=== PATIENT | female | born 2000 | race Caucasian/White ===

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

== ENCOUNTER 2022-03-24 17:42 | Emergency (ER) | payer BC ==
[2022-03-24] MEDS ORDERED: Sodium Chloride 0.9% 10 ML Syringe FLUSH PRN (19:23)
[2022-03-24] MEDS ORDERED: Ondansetron 4 MG/2 ML SDV IVPUSH ONE (19:23)
[2022-03-24] MEDS ORDERED: Alum Hydro/Mag Hydro/Simeth XS 15 ML, Lidocaine 2% 5 ML PO ONE ×2 (19:23)
[2022-03-24] MEDS ORDERED: Sodium Chloride 0.9% 2.5 ML Syringe FLUSH PRN (19:23)
[2022-03-24] MEDS ORDERED: Sodium Chloride 0.9% 1,000 ML IV ONE (19:23)
[2022-03-24 20:35] LABS: CARBON DIOXIDE,CO2 26.6 mmol/L (21.0-32.0); POTASSIUM,K 3.8 mmol/L (3.5-5.1)
[2022-03-24 20:38] LABS: CORONAVIRUS COVID-19 NAA NEGATIVE (NEGATIVE); INFLUENZA A NAA NEGATIVE (NEGATIVE); INFLUENZA B NAA NEGATIVE (NEGATIVE)
[2022-03-24 21:31] VITALS: BP 131/92; PULSE 77
== END 2022-03-24 21:18 | disposition home or self-care (01) ==
LOC: MW.ED 17:42
DX: K29.00 Acute gastritis without bleeding (principal); Z79.899 Other long term (current) drug therapy; Z20.822 Contact with and (suspected) exposure to COVID-19
CPT/HCPCS: 0240U; 36415; 80053; 83735; 85025; 96361; 96374; 99284; A9270; J2405; J3490; J7030

== ENCOUNTER 2022-10-17 11:40 | Day surgery (SDC) | payer BC ==
[~2022-10-17 11:40] MED LIST changes: +Propofol 200 MG/20 ML SDV ONE; +Sodium Chloride 0.9% 10 ML Syringe FLUSH PRN; +Sodium Chloride 0.9% 2.5 ML Syringe FLUSH PRN; +Sodium Chloride 0.9% 20 ML SDV IV PRN
[2022-10-17] MEDS ORDERED: Propofol 200 MG/20 ML SDV ONE ×3 (13:16→13:39)
[2022-10-17] MEDS ORDERED: fentaNYL 100 MCG/2 ML SDV ONE (13:39)
[2022-10-17] MEDS ORDERED: Atropine 1 MG/ML SDV ONE (13:43)
[2022-10-17] MEDS ORDERED: Glycopyrrolate 0.2 MG/ML SDV ONE (13:43)
[2022-10-17 14:26] VITALS: BP 113/68; PULSE 82
== END 2022-10-17 14:40 | disposition home or self-care (01) ==
LOC: MW.SDS 11:40
PROVIDERS: ATTEND Surgery
DX: K29.50 Unspecified chronic gastritis without bleeding (principal); K22.89 Other specified disease of esophagus; K52.9 Noninfective gastroenteritis and colitis, unspecified; K21.9 Gastro-esophageal reflux disease without esophagitis; K82.8 Other specified diseases of gallbladder; J30.9 Allergic rhinitis, unspecified; Z79.899 Other long term (current) drug therapy
CPT/HCPCS: 43239; 45380; 81025; J0461; J2704; J3010; J3490; J7120

== ENCOUNTER 2023-06-17 06:32 | Day surgery (SDC) | payer BC ==
[~2023-06-17 06:32] MED LIST changes: -Propofol 200 MG/20 ML SDV ONE; +ceFAZolin 2 GM in Sodium Chloride 0.9% 50 ML IV ONE
[2023-06-17] MEDS ORDERED: Bupivacaine 0.5% 30 ML SDV ONE (07:18)
[2023-06-17] MEDS ORDERED: Bupivacaine 0.5%/EPINEPHrine 1:200,000 30 ML SDV ONE (07:28)
[2023-06-17] MEDS ORDERED: Famotidine 20 MG/2 ML SDV ONE (07:29)
[2023-06-17] MEDS ORDERED: Bupivacaine 0.25% 30 ML SDV ONE (07:29)
[2023-06-17] MEDS ORDERED: Morphine 10 MG/ML SDV ONE (07:34)
[2023-06-17] MEDS ORDERED: propofoL 50 ML ONE ×2 (07:34→08:41)
[2023-06-17] MEDS ORDERED: fentaNYL 250 MCG/5 ML SDV ONE (07:34)
[2023-06-17] MEDS ORDERED: Propofol 200 MG/20 ML SDV ONE (07:34)
[2023-06-17] MEDS ORDERED: Ondansetron 4 MG/2 ML SDV IVPUSH PRN (08:18)
[2023-06-17] MEDS ORDERED: HYDROmorphone 1 MG/ML Syringe IVPUSH PRN (08:18)
[2023-06-17] MEDS ORDERED: Naloxone 0.4 MG/ML SDV IVPUSH PRN (08:18)
[2023-06-17] MEDS ORDERED: fentaNYL 50 MCG/ML SDV IVPUSH PRN (08:18)
[2023-06-17] MEDS ORDERED: Albuterol 0.083% 2.5 MG/3 ML Neb Soln NEB PRN (08:18)
[2023-06-17] MEDS ORDERED: Morphine 2 MG/ML SYRINGE IVPUSH PRN (08:18)
[2023-06-17] MEDS ORDERED: Metoclopramide 10 MG/2 ML SDV IVPUSH PRN (08:18)
[2023-06-17] MEDS ORDERED: droPERidol 5 MG/2 ML SDV IVPUSH PRN (08:18)
[2023-06-17] MEDS ORDERED: Water For Injection, Sterile 20 ML ONE (08:20)
[2023-06-17] MEDS ORDERED: ceFAZolin 1 GM Vial ONE (08:20)
[2023-06-17] MEDS ORDERED: Lidocaine 2% 11 ML Jelly Filled Syringe ONE (08:20)
[2023-06-17] MEDS ORDERED: fentaNYL 100 MCG/2 ML SDV ONE ×2 (08:40→08:46)
[2023-06-17] MEDS ORDERED: Rocuronium Bromide 50 MG/5 ML Syringe ONE (08:59)
[2023-06-17] MEDS ORDERED: Sugammadex Sodium 200 MG/2 ML VIAL IV ONE (08:59)
[2023-06-17] MEDS ORDERED: Dexamethasone 4 MG/ML 5 ML MDV ONE (08:59)
[2023-06-17] MEDS ORDERED: Ondansetron 4 MG/2 ML SDV ONE (08:59)
[2023-06-17] MEDS ORDERED: Ketorolac 30 MG/ML SDV ONE (08:59)
[2023-06-17 12:38] VITALS: BP 122/74; PULSE 68
== END 2023-06-17 10:50 | disposition home or self-care (01) ==
LOC: MW.SDS 06:32
PROVIDERS: ATTEND Surgery
DX: K82.8 Other specified diseases of gallbladder (principal); K21.9 Gastro-esophageal reflux disease without esophagitis; J45.909 Unspecified asthma, uncomplicated; Z79.899 Other long term (current) drug therapy
CPT/HCPCS: 47562; 64486; 64488; 81025; A9270; J0131; J0665; J0690; J1100; J1885; J2270; J2405; J2704; J3010; J3490; J7120; 00790

== ENCOUNTER 2023-09-23 12:56 | Emergency (ER) | payer BC ==
[2023-09-23 13:30] LABS: BASOPHILS ABSOLUTE AUTO 0.06 K/uL (0.00-0.20); EOSINOPHILS ABSOLUTE AUTO 0.19 K/uL (0.00-0.45); EOSINOPHILS PERCENT AUTO 3.1 % (0.0-6.0); HEMATOCRIT 41.8 % (37.0-47.0); HEMOGLOBIN 13.7 g/dL (12.0-16.0); IMMATURE GRAN ABSOLUTE AUTO 0.02 K/uL (0.00-0.05); IMMATURE GRAN PERCENT AUTO 0.3 % (0.0-0.4); LYMPHOCYTES ABSOLUTE AUTO 1.39 K/uL (1.00-4.80); MEAN CORPUSCULAR HEMOGLOBIN 28.2 pg (28.0-32.0); MEAN CORPUSCULAR HGB CONC 32.8 g/dL (32.0-36.0); MEAN CORPUSCULAR VOLUME 86.2 fL (83.0-99.0); MONOCYTES ABSOLUTE AUTO 0.34 K/uL (0.00-0.80); MONOCYTES PERCENT AUTO 5.6 % (0.0-8.0); NEUTROPHILS ABSOLUTE AUTO 4.04 K/uL (1.80-7.70); PLATELET COUNT,PLT 279 K/uL (150-400); RED BLOOD CELL COUNT 4.85 M/uL (4.10-5.30); WHITE BLOOD CELL COUNT,WBC 6.04 K/uL (3.9-11.3)
[2023-09-23] MEDS: Sodium Chloride 0.9% 1,000 ML IV ONE (13:30)
[2023-09-23] MEDS: Ketorolac 30 MG/ML SDV IVPUSH ONE (13:30)
[2023-09-23] MEDS: Ondansetron 4 MG/2 ML SDV IVPUSH ONE (13:31)
[2023-09-23 13:40] LABS: APPEARANCE,URINE SLT CLOUDY; BILIRUBIN,URINE NEGATIVE (NEGATIVE); GLUCOSE,URINE NEGATIVE (NEGATIVE); KETONES,URINE TRACE mg/dL (NEGATIVE); LEUKOCYTE ESTERASE,URINE NEGATIVE (NEGATIVE); NITRITE,URINE NEGATIVE (NEGATIVE); OCCULT BLOOD,URINE NEGATIVE (NEGATIVE); PH,URINE 5.5 (5.0-8.0); PROTEIN,URINE NEGATIVE (NEGATIVE); UROBILINOGEN,URINE 0.2 EU/dL (<2.0)
[2023-09-23 13:42] LABS: COLOR,URINE DARK YELLOW
[2023-09-23 14:03] LABS: A/G RATIO 0.8 (0.9-1.6); ALBUMIN 3.6 g/dL (3.4-5.0); BILIRUBIN TOTAL 0.4 mg/dL (0.2-1.0); CALCIUM 9.2 mg/dL (8.5-10.1); CARBON DIOXIDE,CO2 22.8 mmol/L (21.0-32.0); CREATININE 0.8 mg/dL (0.6-1.0); EST CRCL DRUG DOSING (CG) 101.51 mL/min; POTASSIUM,K 3.9 mmol/L (3.5-5.1); PROTEIN TOTAL,TP 8.3 g/dL (6.4-8.2); TSH ULTRASENSITIVE 0.85 uIU/mL (0.36-3.74)
[2023-09-23 14:49] VITALS: BP 126/86; PULSE 83
== END 2023-09-23 14:52 | disposition home or self-care (01) ==
LOC: MW.ED 12:56
DX: R51.9 Headache, unspecified (principal); J45.909 Unspecified asthma, uncomplicated; K21.9 Gastro-esophageal reflux disease without esophagitis; Z79.51 Long term (current) use of inhaled steroids; Z79.899 Other long term (current) drug therapy; Z75.8 Other problems related to medical facilities and other health care
CPT/HCPCS: 36415; 70450; 80053; 81003; 81025; 83735; 84443; 85025; 96361; 96374; 96375; 99284; J1885; J2405; J7030

== ENCOUNTER 2024-08-02 09:07 | Emergency (ER) | payer BC ==
[2024-08-02] MEDS ORDERED: Sodium Chloride 0.9% 10 ML Syringe FLUSH PRN (09:15)
[2024-08-02] MEDS ORDERED: Sodium Chloride 0.9% 2.5 ML Syringe FLUSH PRN (09:15)
[2024-08-02] MEDS: Ondansetron 4 MG/2 ML SDV IVPUSH ONE (09:32)
[2024-08-02] MEDS: Sodium Chloride 0.9% 1,000 ML IV ONE (09:32)
[2024-08-02] MEDS: Morphine 4 MG/ML Syringe IVPUSH ONE (09:32)
[2024-08-02 09:36] LABS: BASOPHILS ABSOLUTE AUTO 0.05 K/uL (0.00-0.20); BASOPHILS PERCENT AUTO 0.7 % (0.0-1.0); HEMOGLOBIN 12.7 g/dL (12.0-16.0); IMMATURE GRAN ABSOLUTE AUTO 0.02 K/uL (0.00-0.05); IMMATURE GRAN PERCENT AUTO 0.3 % (0.0-0.4)
[2024-08-02 09:37] LABS: EOSINOPHILS ABSOLUTE AUTO 0.23 K/uL (0.00-0.45); EOSINOPHILS PERCENT AUTO 3.1 % (0.0-6.0); HEMATOCRIT 38.9 % (37.0-47.0); LYMPHOCYTES ABSOLUTE AUTO 1.89 K/uL (1.00-4.80); LYMPHOCYTES PERCENT AUTO 25.7 % (24.0-44.0); MEAN CORPUSCULAR HEMOGLOBIN 27.2 pg (28.0-32.0); MEAN CORPUSCULAR HGB CONC 32.6 g/dL (32.0-36.0); MEAN CORPUSCULAR VOLUME 83.3 fL (83.0-99.0); MONOCYTES ABSOLUTE AUTO 0.49 K/uL (0.00-0.80); MONOCYTES PERCENT AUTO 6.7 % (0.0-8.0); NEUTROPHILS ABSOLUTE AUTO 4.68 K/uL (1.80-7.70); NEUTROPHILS PERCENT AUTO 63.5 % (41.0-71.0); PLATELET COUNT,PLT 292 K/uL (150-400); RED BLOOD CELL COUNT 4.67 M/uL (4.10-5.30); WHITE BLOOD CELL COUNT,WBC 7.36 K/uL (3.9-11.3)
[2024-08-02 10:07] LABS: A/G RATIO 0.7 (0.9-1.6); ALBUMIN 3.4 g/dL (3.4-5.0); BILIRUBIN TOTAL 0.3 mg/dL (0.2-1.0); CALCIUM 8.9 mg/dL (8.5-10.1); CARBON DIOXIDE,CO2 24.5 mmol/L (21.0-32.0); CREATININE 0.9 mg/dL (0.6-1.0); EST CRCL DRUG DOSING (CG) 89.45 mL/min; POTASSIUM,K 3.6 mmol/L (3.5-5.1)
[2024-08-02] MEDS: Ketorolac 30 MG/ML SDV IVPUSH ONE (10:48)
[2024-08-02 10:50] LABS: APPEARANCE,URINE SLT CLOUDY; BILIRUBIN,URINE NEGATIVE (NEGATIVE); COLOR,URINE YELLOW; GLUCOSE,URINE NEGATIVE (NEGATIVE); KETONES,URINE NEGATIVE (NEGATIVE); LEUKOCYTE ESTERASE,URINE NEGATIVE (NEGATIVE); NITRITE,URINE NEGATIVE (NEGATIVE); OCCULT BLOOD,URINE NEGATIVE (NEGATIVE); PH,URINE 5.5 (5.0-8.0); PROTEIN,URINE NEGATIVE (NEGATIVE); UROBILINOGEN,URINE 0.2 EU/dL (<2.0)
[2024-08-02] MEDS: Iopamidol 755 MG/ML 500 ML Multipack Bottle IVPUSH STA (12:11)
[2024-08-02 12:34] VITALS: BP 112/64
[2024-08-02 13:11] VITALS: PULSE 88
== END 2024-08-02 13:10 | disposition home or self-care (01) ==
LOC: MW.ED 09:07
DX: R10.31 Right lower quadrant pain (principal); J45.909 Unspecified asthma, uncomplicated; Z75.8 Other problems related to medical facilities and other health care; Z79.51 Long term (current) use of inhaled steroids; Z79.899 Other long term (current) drug therapy
CPT/HCPCS: 36415; 74177; 76856; 80053; 81003; 81025; 83690; 85025; 96374; 96375; 99284; J1885; J2270; J2405; J7030; Q9967